=== PATIENT | female | born 1960 | race Caucasian/White ===

== ENCOUNTER 2017-07-11 08:45 | Outpatient (CLI) | payer BC ==
[~2017-07-11] VITALS: Ht 157.5 cm; Wt 90.7 kg
[2017-07-11] MEDS ORDERED: VALS1TAB2 PO (09:56)
[2017-07-11] MEDS ORDERED: POTA99TA21 PO (09:56)
[2017-07-11] MEDS ORDERED: ATOR20TA66 PO (09:56)
[2017-07-11] MEDS ORDERED: MULT1TAB69 PO (09:56)
== END 2017-07-11 09:57 ==
LOC: PREOP 08:45
PROVIDERS: ATTEND Surgery
DX: Z01.818 Encounter for other preprocedural examination (principal); Z12.11 Encounter for screening for malignant neoplasm of colon

== ENCOUNTER → 2020-04-23 | Outpatient (CLI) | payer BC ==
[~2020-04-23] MED LIST: ATOR20TA66 PO; MULT-567 PO; POTA99TA21 PO; VALS1TAB2 PO
--- NOTE | 2020-04-24 10:10 | Diagnostic Imaging Report ---
INDICATION: Routine screening. No prior mammogram is available for comparison. 2-D and 3-D bilateral screening mammography was performed with CAD. Scattered fibroglandular densities are identified bilaterally. There is a spiculated mass in the outer aspect of the left breast at mid depth. This is highly concerning for neoplasm. There are some benign calcifications in both breasts. Immediately posterior and slightly to the dominant lesion is a 2nd slightly nodular lesion. A small satellite lesion cannot be entirely excluded. The right breast contains a circumscribed nodule slightly outer anterior depth. Seen on tomographic cc view # 7 and is projected at the nipple line on the MLO view. Additional views of this area is recommended. Additional views of the spiculated mass are recommended on the left. Axillae are unremarkable. IMPRESSION: 1. Spiculated mass outer left breast mid depth, highly concerning for neoplasm. There may be adjacent smaller satellite lesion. Additional views are recommended. 2. Circumscribed nodule in the outer right breast. Additional views of this lesion are recommended as well. ACR BI-RADS Category 0: Incomplete. (Needs additional imaging evaluation). Result letter will be mailed to the patient. Note: At least 10% of breast cancer is not imaged by mammography. BI-RADS 0 Dictated by: Dictated on workstation # [id number]
== END ==
LOC: RAD 14:55
PROVIDERS: ATTEND Family Medicine
DX: Z12.31 Encounter for screening mammogram for malignant neoplasm of breast (principal); N63.10 Unspecified lump in the right breast, unspecified quadrant; N63.20 Unspecified lump in the left breast, unspecified quadrant
CPT/HCPCS: 77063; 77067

== ENCOUNTER → 2020-05-04 | Outpatient (CLI) | payer BC ==
--- NOTE | 2020-05-04 14:33 | Diagnostic Imaging Report ---
INDICATION: Spiculated left breast density as well as right breast nodule. Patient presents for additional views. Correlation is made with recent screening study from 04/15/2020. 2-D and 3-D bilateral diagnostic mammography was performed. This includes spot compression views and 90 degree lateral views. There is a persistent circumscribed nodule in the lower outer right breast approximately 6 cm from the nipple. This has fairly benign features. Even so, further evaluation ultrasound is recommended. Additional views left breast demonstrate a spiculated mass in the lower outer right breast approximately 11 cm from the nipple. This is concerning for breast neoplasm. There is a small adjacent nodule which could represent a satellite lesion. Ultrasound of this area is recommended and will be performed today. IMPRESSION: BI-RADS Category 0 Bilateral breast densities, as described. Further evaluation ultrasound is recommended and will be performed today. ACR BI-RADS Category 0: Incomplete. (Needs additional imaging evaluation). Result letter will be mailed to the patient. Note: At least 10% of breast cancer is not imaged by mammography. Dictated by: Dictated on workstation # [id number]
--- NOTE | 2020-05-04 15:24 | Diagnostic Imaging Report ---
INDICATION: Bilateral breast masses. CORRELATION is made with diagnostic mammogram from earlier the same day and screening mammogram from 04/23/2020. Right Breast: Sonographic interrogation of the lower outer right breast demonstrates a circumscribed, hypoechoic nodule at the 8:30 location, 6 cm from the nipple, measuring 8 mm x 4 mm x 6 mm. This has the appearance of a benign lymph node. This likely accounts for the mammographic density. No other abnormalities on the right are identified. Left Breast: At the 4:00 location of the left breast, 11 cm from the nipple, there is an irregular, hypoechoic solid mass measuring 1.6 x 1.1 x 1.0 cm, accounting for the spiculated mass noted mammographically. This does demonstrate internal vascularity. In addition, there is a slightly irregular hypoechoic nodule adjacent to this measuring 1.3 x 0.6 x 0.7 cm which may represent a satellite nodule. Imaging of the left axilla does show a lymph node measuring 0.9 x 0.6 x 1.0 cm. This does show some increased vascularity and does not have a fatty hilum. This could be abnormal. No other abnormalities in the left axilla are identified. IMPRESSION: BI-RADS Category 4. 1. Benign-appearing lymph node at the 8:30 location right breast, 6 cm from the nipple accounting for the mammographic density. 2. Spiculated mass at the 4:00 location, 11 cm from the nipple corresponding to the mammographic density. This is highly concerning for breast neoplasm. There is a second irregular nodule adjacent to this, also concerning for a satellite neoplasm. Tissue sampling would be recommended. These would be amenable to ultrasound-guided core biopsy. 3. Normal-sized lymph node left axilla however this does show some increased vascularity and slight distortion of the architecture. The possibility of a metastatic nodule cannot be entirely excluded and tissue sampling would be recommended. Dictated by: Dictated on workstation # [id number]
== END ==
LOC: RAD 13:36
PROVIDERS: ATTEND Nurse Practitioner Family
DX: N63.13 Unspecified lump in the right breast, lower outer quadrant (principal); N63.24 Unspecified lump in the left breast, lower inner quadrant
CPT/HCPCS: 76642; 77066; G0279; 77062

== ENCOUNTER → 2020-05-05 | Outpatient (CLI) | payer BC ==
[~2020-05-05] MED LIST changes: +LIDOCAINE 1% INJ 20 ML 20 ML VIAL INJ ONE
--- NOTE | 2020-05-05 15:28 | Diagnostic Imaging Report ---
INDICATION: Left breast mass. Patient presents for ultrasound-guided biopsy. FINDINGS: The patient was brought to the procedure room and placed on the table in the supine position. Ultrasound imaging of the left axilla and left breast was performed to evaluate for an appropriate entry site. The skin of the left breast and left axilla was prepped and draped in the usual sterile fashion. A small amount of 1% lidocaine was utilized for local anesthesia. A total of three core biopsies of the slightly prominent hypoechoic solid nodule in the left axilla, a presumed lymph node, was obtained with a 14-gauge Achieve needle. A marker clip was then deployed. Hemostasis was obtained using manual compression. Next, multiple core biopsies of the irregular hypoechoic solid mass at the 4 o'clock location of the left breast 11 cm from the nipple was performed utilizing a 14-gauge Achieve needle. A marker clip was then deployed. Hemostasis was obtained using manual compression. The patient tolerated the procedure well and was sent for a post procedure mammogram in satisfactory condition. IMPRESSION: Successful ultrasound guided core biopsy of a left axillary lymph node and a left breast mass at the 4 o'clock location, as described. Pathology results are currently pending. Dictated by: Dictated on workstation # [id number]
--- NOTE | 2020-05-06 10:02 | Diagnostic Imaging Report ---
INDICATION: Left breast mass, status post biopsy. Unilateral left CC and ML mammography was performed status post left breast biopsy. Images demonstrate a marker clip adjacent to spiculated mass in the outer left breast. A biopsy was also performed of the left axillary lymph node however this does not appear to be included on mammographic images. IMPRESSION: Marker clip adjacent to the spiculated mass in the outer left breast. Dictated by: Dictated on workstation # [id number]
== END ==
LOC: RAD 11:31
PROVIDERS: ATTEND Family Medicine
DX: N63.24 Unspecified lump in the left breast, lower inner quadrant (principal)
CPT/HCPCS: 19083; 19084; 77065; G0279

== ENCOUNTER → 2021-10-12 | Outpatient (CLI) | payer BC ==
[~2021-10-12] VITALS: Ht 157.5 cm; Wt 90.7 kg
[~2021-10-12] MED LIST changes: -LIDOCAINE 1% INJ 20 ML 20 ML VIAL INJ ONE; -POTA99TA21 PO; +POTA99TA26 PO
[2021-10-12 14:05] VITALS: BP 109/59
== END ==
LOC: SDC 13:53
PROVIDERS: ATTEND Nurse Practitioner Family
DX: Z45.2 Encounter for adjustment and management of vascular access device (principal)
CPT/HCPCS: 96523

== ENCOUNTER 2022-03-16 13:10 | Emergency (ER) | payer BC ==
[~2022-03-16] VITALS: Ht 154.9 cm; Wt 78.0 kg
--- NOTE | 2022-03-16 13:26 | ED Fall/Injury ---
General Stated Complaint: FALL History of Present Illness Date Seen by Provider: Mar 16, 2022 Time Seen by Provider: 13:15 Initial Comments 61-year-old female with PMH of breast cancer with last round of chemo in August 2021 and currently in remission/HTN, is brought in by EMS with complaints of left shoulder pain and deformity after she had a fall down steep stairs outdoors of because she works at. Patient states that she was rushing and tripped and fell. Denies dizziness before or after, headache, LOC, blurry vision, neck pain or neck stiffness, chest pain, shortness of breath, abdominal pain, back pain, lower extremity pain. Patient is right-hand dominant. Patient states that she covered her head with her arms to prevent her head from becoming injured during the fall. Allergies and Home Medications Allergies Coded Allergies: No Known Drug Allergies (Unverified , 07/11/17) Patient Home Medication List Home Medication List Reviewed: Yes Atorvastatin Calcium (Atorvastatin Calcium) 20 Mg Tablet, 20 MG PO DAILY, (Reported) Entered as Reported by: CEZAR SANTIZO on 07/11/17 0956 Multivitamin (Multivitamins) 1 Each Tablet, 1 EACH PO DAILY, (Reported) Entered as Reported by: CEZAR SANTIZO on 07/11/17 0956 Potassium Gluconate (Potassium) 99 Mg Tablet, 99 MG PO DAILY, (Reported) Entered as Reported by: CEZAR SANTIZO on 07/11/17 0956 Valsartan/Hydrochlorothiazide (Diovan Hct 80-12.5 mg Tablet) 1 Each Tablet, 1 EACH PO DAILY, (Reported) Entered as Reported by: CEZAR SANTIZO on 07/11/17 0956 Review of Systems Review of Systems Constitutional: no symptoms reported Eyes: No Symptoms Reported Ears, Nose, Mouth, Throat: no symptoms reported Respiratory: no symptoms reported Cardiovascular: no symptoms reported Gastrointestinal: no symptoms reported Genitourinary: no symptoms reported Musculoskeletal: see HPI, joint pain Skin: no symptoms reported Psychiatric/Neurological: No Symptoms Reported Past Uwfpzlo-Vkhmwp-Afibhk Hx Seasonal Allergies Seasonal Allergies: No Past Medical History High Cholesterol, Hypertension Physical Exam Vital Signs Vital Signs - First Documented 03/16/22 03/16/22 13:15 13:20 Pulse 75 Resp 20 B/P (MAP) 126/105 (112) Pulse Ox 97 O2 Delivery Room Air Capillary Refill : Height, Weight, BMI Height: 5'2.00" Weight: 200lbs. 0.0oz. 90.762678ti; 36.6 BMI Method: General Appearance: severe distress HEENT: PERRL/EOMI, normal ENT inspection, other (No external head injury or neck injury visualized, no facial trauma) Neck: non-tender, full range of motion, supple, normal inspection Cardiovascular: regular rate, rhythm Respiratory: chest non-tender, lungs clear, normal breath sounds Gastrointestinal: normal bowel sounds, non tender, soft Back: normal inspection, no vertebral tenderness Extremities: other (Right shoulder is normal. Left shoulder: Deformity seen on left shoulder, N/V bundle intact, finger squeeze normal, overlying skin over the shoulder does not show any bruises or lacerations, ROM restricted due to pain and deformity) Neurologic/Psychiatric: director of counterintelligence II-XII nml as tested, no motor/sensory deficits, alert, normal mood/affect, oriented x 3 Skin: normal color [place] Coma Score Best Eye Response: (4) Open Spontaneously Best Verbal Response: (5) Oriented Best Motor Response: (6) Obeys Commands [place] Total: 15 Progress/Results/Core Measures Results/Orders My Orders Orders - CARLOS PEÑA MD Ct Head/Cervical Spine Wo (03/16/22 13:30) Chest 1 View, Ap/Pa Only (03/16/22 13:31) Shoulder, Left, 3 Views (03/16/22 13:31) Hydromorphone Injection (Dilaudid Inject (03/16/22 13:45) Shoulder Immoblizer (03/16/22 14:58) Medications Given in ED Current Medications Medications Dose Ordered Sig/Nagi Route Start Time Stop Time Status Last Admin Dose Admin Hydromorphone HCl 0.5 mg ONCE ONCE IV 03/16/22 13:45 03/16/22 13:46 DC 03/16/22 13:59 0.5 MG Vital Signs/I&O 03/16/22 03/16/22 13:15 13:20 Pulse 75 70 Resp 20 B/P (MAP) 126/105 (112) 127/106 (113) Pulse Ox 97 100 O2 Delivery Room Air Room Air Progress Progress Note : Progress Note 1. FALL DOWN STAIRS: LEFT SHOULDER INJURY: - CT HEAD/ CERVICAL: no acute findings - XR LEFT SHOULDER: Proximal humeral fractures of the neck and head without dislocation. -Patient received 2 rounds of fentanyl 50 mcg in the ambulance. In the ER patient received Dilaudid 0.5 mg IV since she was still complaining of 10/10 pain. - Recieved a 2nd dose of Dilaudid prior to discharge -Patient is not on any blood thinners. -Discussed with Ortho: Dr. Ramires and patient will be following up with him in clinic - Immobilize with Sling / wrap - Prescription for Percocet for severe pain and either Naproxen or Ibuprofen for mild to moderate pain. -Advised ice application shoulder and jgrd-jop-mpasflw Lidoderm patches for shoulder -Follow-up with Ortho clinic within the next 3 to 7 days -The patient was seen in the ED, and treated appropriately to presentation at a specific point in time. Patient is informed that there is a possibility that disease and illness can evolve and change in acuity rapidly or slowly after patient is discharged from the ER. Precautionary advice given to the patient for immediate return to ER if symptoms worsen or do not resolve, and to seek emergency care sooner rather than later. Pt also advised on the importance of PCP follow up and compliance with management and follow up plan with PCP and/or specialist, as this is part of the management plan. Pt verbally expressed understanding. Diagnostic Imaging Diagonstic Imaging: Xray, CT Plain Films/CT/US/NM/MRI: chest, head, other (Shoulder) Comments [facility] [place], [place] NAME: ASHANTI ALFRED V [facility] REC#: [id number] PT STATUS: REG ER : 1960 PHYSICIAN: CARLOS PEÑA MD ADMIT DATE: 03/16/22/ER Draft Date of Exam:03/16/22 SHOULDER, LEFT, 3 VIEWS INDICATION: Fall, pain. FINDINGS: There are comminuted proximal humeral fractures of its neck and greater tubercle of the head. No dislocation. No separation of the AC joint. The left clavicle appeared intact. IMPRESSION: Proximal humeral fractures of the neck and head without dislocation. Dictated on workstation # [id number] Dict: 03/16/22 1354 Trans: 03/16/22 1356 [id number] Interpreted by: DUNIA VIZCAINO Electronically signed by: [facility] [place] NAME: ASHANTI ALFRED V [facility] REC#: [id number] PT STATUS: REG ER : 1960 PHYSICIAN: CARLOS PEÑA MD ADMIT DATE: 03/16/22/ER Signed Date of Exam:03/16/22 CHEST 1 VIEW, AP/PA ONLY EXAMINATION: Chest 1 view HISTORY: Chest pain COMPARISON: None available. FINDINGS: Heart size and pulmonary vasculature are normal. There is likely soft tissue attenuation overlying the left hemithorax. Surgical changes seen throughout the left chest wall. No focal consolidation, pleural effusion, or pneumothorax. The osseous structures are intact. IMPRESSION: 1. No acute radiographic abnormality in the chest. Dictated by: Dictated on workstation # [id number] Dict: 03/16/22 1408 Trans: 03/16/[address] [facility] [id number] Interpreted by: IRA VALDEZ DO Electronically signed by: IRA VALDEZ DO 03/16/22 1420 [facility] [place] NAME: ASHANTI ALFRED V [facility] REC#: [id number] PT STATUS: REG ER : 1960 PHYSICIAN: CARLOS PEÑA MD ADMIT DATE: 03/16/22/ER Draft Date of Exam:03/16/22 CT HEAD/CERVICAL SPINE WO PROCEDURE: CT head and CT cervical spine without contrast. TECHNIQUE: Multiple contiguous axial images were obtained through the brain and cervical spine without the use of intravenous contrast. Sagittal and coronal reformations through the cervical spine were then performed. Auto Exposure Controls were utilized during the CT exam to meet ALARA standards for radiation dose reduction. INDICATION: Fall with head and neck injuries. CT HEAD: CT images of the head were obtained. FINDINGS: Ventricles and sulci are within normal limits for size. There is no intracranial hemorrhage identified. There is no abnormal mass effect or shift of midline structures. IMPRESSION: Unremarkable CT of the head. CT CERVICAL SPINE: Cervical spinal curvature and alignment are unremarkable. There is mild diffuse disc space narrowing and mild marginal spurring at the facet joints, however no acute fracture or malalignment is identified. There is no evidence of paraspinous hematoma. IMPRESSION: Mild cervical spondylosis without CT evidence of acute cervical spinal abnormality. Dictated on workstation # [id number] Dict: 03/16/22 1344 Trans: 03/16/22 1353 AS6 [id number] Interpreted by: DUNIA CHU MD Electronically signed by: Departure Impression Primary Impression: Fracture of humeral head, left, closed Qualified Codes: S42.292A - Other displaced fracture of upper end of left humerus, initial encounter for closed fracture Additional Impression: Fall (on) (from) other stairs and steps, initial encounter Disposition: HOME, SELF-CARE Condition: Stable Departure-Patient Inst. Referrals: ERICK GARLAND MD (PCP/Family) Primary Care Physician LUCIANO RAMIRES MD Patient Instructions: Shoulder Fracture, Shoulder Fracture (DC), Preventing Falls ED Add. Discharge Instructions: - Immobilize with Sling / wrap - Prescription for Percocet for severe pain and either Naproxen or Ibuprofen for mild to moderate pain. -Advised ice application shoulder and [id number]-tqoturf Lidoderm patches for shoulder -Follow-up with Ortho clinic within the next 3 to 7 days: Dr Ramires Scripts Oxycodone HCl/Acetaminophen (Percocet 5-325 mg Tablet) 1 Each Tablet 1 TAB PO Q6H for PAIN-MODERATE MDD 6 TABS for 4 Days, #10 TAB Prov: CARLOS PEÑA MD 03/16/22 CARLOS PEÑA MD Mar 16, 2022 13:26
[2022-03-16] MEDS ORDERED: HYDROmorphone 2 MG/ML VIAL (DILAUDID) IV ONE ×2 (13:45→15:30)
--- NOTE | 2022-03-16 13:53 | Diagnostic Imaging Report ---
PROCEDURE: CT head and CT cervical spine without contrast. TECHNIQUE: Multiple contiguous axial images were obtained through the brain and cervical spine without the use of intravenous contrast. Sagittal and coronal reformations through the cervical spine were then performed. Auto Exposure Controls were utilized during the CT exam to meet ALARA standards for radiation dose reduction. INDICATION: Fall with head and neck injuries. CT HEAD: CT images of the head were obtained. FINDINGS: Ventricles and sulci are within normal limits for size. There is no intracranial hemorrhage identified. There is no abnormal mass effect or shift of midline structures. IMPRESSION: Unremarkable CT of the head. CT CERVICAL SPINE: Cervical spinal curvature and alignment are unremarkable. There is mild diffuse disc space narrowing and mild marginal spurring at the facet joints, however no acute fracture or malalignment is identified. There is no evidence of paraspinous hematoma. IMPRESSION: Mild cervical spondylosis without CT evidence of acute cervical spinal abnormality. Dictated by: Dictated on workstation # [id number]
--- NOTE | 2022-03-16 13:56 | Diagnostic Imaging Report ---
INDICATION: Fall, pain. FINDINGS: There are comminuted proximal humeral fractures of its neck and greater tubercle of the head. No dislocation. No separation of the AC joint. The left clavicle appeared intact. IMPRESSION: Proximal humeral fractures of the neck and head without dislocation. Dictated by: Dictated on workstation # [id number]
--- NOTE | 2022-03-16 14:12 | Diagnostic Imaging Report ---
EXAMINATION: Chest 1 view HISTORY: Chest pain COMPARISON: None available. FINDINGS: Heart size and pulmonary vasculature are normal. There is likely soft tissue attenuation overlying the left hemithorax. Surgical changes seen throughout the left chest wall. No focal consolidation, pleural effusion, or pneumothorax. The osseous structures are intact. IMPRESSION: 1. No acute radiographic abnormality in the chest. Dictated by: Dictated on workstation # [id number]
[2022-03-16] MEDS ORDERED: OXYC1TAB87 PO (15:26)
[2022-03-16] MEDS ORDERED: KETOROLAC 15 MG/ML VIAL IVP ONE (15:30)
[2022-03-16 16:05] VITALS: BP 126/67
== END 2022-03-16 16:01 | disposition home or self-care (01) ==
LOC: EDUNIT# 13:10 → ER 13:12
DX: S42.292A Other displaced fracture of upper end of left humerus, initial encounter for closed fracture (principal); C50.919 Malignant neoplasm of unspecified site of unspecified female breast; W10.8XXA Fall (on) (from) other stairs and steps, initial encounter; Y92.59 Other trade areas as the place of occurrence of the external cause; Y99.0 Civilian activity done for income or pay
CPT/HCPCS: 70450; 71045; 72125; 73030; 99283; L3650